=== PATIENT | male | born 1940 | race Caucasian/White ===

== ENCOUNTER → 2017-02-07 | Outpatient (CLI) | payer BC ==
--- NOTE | 2017-02-08 23:41 | PULMONARY FUNCTION TEST ---
Spirometry is normal. Repeat study done following bronchodilators showed no significant change in function. Flow volume loop on expiration was normal. It appeared the patient did not optimally perform the inspiratory portion of the flow volume loop.
== END | disposition home or self-care (01) ==
LOC: C.RC 11:18
PROVIDERS: ATTEND Internal Medicine
DX: R05 Cough (principal)

== ENCOUNTER 2019-02-22 10:35 | Inpatient (IN) ==
--- NOTE | 2019-01-04 13:57 | PAT Medication Instructions ---
Medication Instructions Date of Service January 04, 2019 Home Medications Medication Instructions Recorded trazodone 50 mg tablet 50 mg PO QPM #30 tab 01/02/19 alfuzosin [Uroxatral] 10 mg PO UD PRN cholecalciferol (vitamin D3) [Vitamin D3] 2,000 unit PO DAILY losartan [Cozaar] 100 mg PO QAM aspirin 325 mg tablet 325 mg PO DAILY atorvastatin 40 mg tablet 40 mg PO QPM coenzyme Q10 100 mg capsule 200 mg PO DAILY hydrochlorothiazide 12.5 mg tablet 12.5 mg PO QAM magnesium citrate 100 mg tablet 100 mg PO DAILY vitamin B complex capsule 1 cap PO DAILY trazodone 50 mg tablet 50 mg PO QPM omeprazole magnesium [Prilosec OTC] 20 mg PO UD PRN vitamin K2 100 mcg PO DAILY ASK your prescriber and surgeon aspirin 325 mg tablet 325 mg PO DAILY STOP taking 2 weeks before surgery (or as soon as possible if surgery is within 2 weeks) coenzyme Q10 100 mg capsule 200 mg PO DAILY vitamin K2 100 mcg PO DAILY DO NOT take the morning of surgery cholecalciferol (vitamin D3) [Vitamin D3] 2,000 unit PO DAILY losartan [Cozaar] 100 mg PO QAM hydrochlorothiazide 12.5 mg tablet 12.5 mg PO QAM magnesium citrate 100 mg tablet 100 mg PO DAILY vitamin B complex capsule 1 cap PO DAILY Take morning of surgery With a small sip of water, OTHERWISE NOTHING TO EAT OR DRINK AFTER MIDNIGHT: alfuzosin [Uroxatral] 10 mg PO UD PRN (if needed) omeprazole magnesium [Prilosec OTC] 20 mg PO UD PRN (if needed) Take evening before surgery alfuzosin [Uroxatral] 10 mg PO UD PRN (if needed) atorvastatin 40 mg tablet 40 mg PO QPM trazodone 50 mg tablet 50 mg PO QPM omeprazole magnesium [Prilosec OTC] 20 mg PO UD PRN (if needed) Other Notes If you have any questions please call us at [phone] or [phone] or [phone] or [phone]
--- NOTE | 2019-01-07 10:06 | Anesthesiology Consultation ---
Date of Service January 07, 2019 Assessment & Plan (1) Encounter for pre-operative examination: Chart Review Chart Review: Pending: Refer to Additional Notes / Consult section and Patient seen in Pre Admission Testing Labs pending. Consults Requested cardiac Patient has a follow up appointment with his Cardiology at [facility] on February 14. 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 Patient stated s iron worker has already spoken to cardiac surgery and they do not feel surgery is indicated at this time. Will wait until this appointment is completed and would request the note to be reviewed prior to stating patient is an acceptable risk for knee surgery. Teaching & Discussion I spoke at great length to the patient and stated he would be offered an adductor canal block with a likely general anesthetic although would not definitively r/o SAB (will leave to the discretion of the anesthesia provider DOS). Also spoke to him about the possibility of an arterial line for closer BP monitoring. Patient understood and had all questions answered. He is very much interested in having knee surgery as he states he is active, plays tennis and has never had any symptoms stemming from his dilated aorta. History Surgery Operation Date: 02/22/19 07:00 Proposed Procedures p Right Knee Hemiarthroplasty - Hank Murillo, Height/Weight Height: 5 ft 8 in Weight: 87 kg Allergies Allergy/AdvReac Type Severity Reaction Status Date / Time celecoxib [From Celebrex] Allergy Unknown Rash Verified 01/03/19 09:34 erythromycin base Allergy Unknown Rash Verified 01/03/19 09:34 nickel Allergy Unknown "INFLAMMATI Verified 01/03/19 09:34 ON" morphine AdvReac Unknown N/V, Verified 01/03/19 09:34 VERTIGO AND HEADACHE Medications Home Medications Medication Instructions Recorded Confirmed Last Taken alfuzosin [Uroxatral] 10 mg PO UD PRN 01/10/18 01/03/19 Unknown cholecalciferol (vitamin D3) 2,000 unit PO DAILY 01/10/18 01/03/19 Unknown [Vitamin D3] losartan [Cozaar] 100 mg PO QAM 01/10/18 01/03/19 Unknown aspirin 325 mg tablet 325 mg PO DAILY tab 11/06/18 01/03/19 Unknown atorvastatin 40 mg tablet 40 mg PO QPM tab 11/06/18 01/03/19 Unknown coenzyme Q10 100 mg capsule 200 mg PO DAILY cap 11/06/18 01/03/19 Unknown hydrochlorothiazide 12.5 mg tablet 12.5 mg PO QAM #30 tab 11/06/18 01/03/19 Unknown magnesium citrate 100 mg tablet 100 mg PO DAILY tab 11/06/18 01/03/19 Unknown vitamin B complex capsule 1 cap PO DAILY 11/06/18 01/03/19 Unknown trazodone 50 mg tablet 50 mg PO QPM #30 tab 01/02/19 01/03/19 Unknown omeprazole magnesium [Prilosec OTC] 20 mg PO UD PRN 01/03/19 01/03/19 Unknown vitamin K2 100 mcg PO DAILY 01/03/19 01/03/19 Unknown Past Medical History Medical History Aneurysm of ascending aorta (Acute) AORTA ROOT AND DESCENDING AORTA, SIZE CHECK Q 6 MON/LAST CHECK, WEEKS AGO - 4.[address] Sesar Chow of [facility] cardiology. Most recently saw patient November 08, 2018. Per his note: CTA of the aorta to re-evaluate aortic enlargement (which was done 12/27/2018). Given FH of dissection (patient's father had fatal dissection in his mid 60's), to jessie monten[place]ro these results with cardiac surgery. Home BP monitoring." BPH (benign prostatic hyperplasia) (Acute) CAD (coronary artery disease) (Acute) Hyperlipidemia (Acute) Hypertension (Acute) Anxiety Bradycardia BASELINE RESTING HR HIGH 40'S, LOW 50'S - NO SYMPTOMS WITH - PT ACTIVE LIFESTYLE Heartburn OCCASSIONAL Insomnia Osteoarthritis Sleep apnea CPAP Exercise / Class Metabolic Activity 1 > 8 Run/Swim/Ski/Tennis Past Family History Family History Mother Hypertension Stroke Father Aortic aneurysm Cardiac disorder Past Surgical History Surgical History History of colonoscopy History of knee surgery LEFT KNEE HEMIARTHROPLASTY. 10 years ago. SAB. No anesthesia issues. History of right knee surgery Social History Smoking Status: Never smoker Do You Dip or Chew Tobacco: No Hx Alcohol Use: Yes Alcohol type: wine and hard liquor alcohol intake frequency: a few times a week Hx Substance Use: No substance use type: does not use Physical Exam Vital Signs Last Vital Signs Temp 36.6 C 01/07/19 09:32 Pulse 53 L 01/07/19 09:32 Resp 18 01/07/19 09:32 BP 120/58 L 01/07/19 09:32 Pulse Ox 100 01/07/19 09:32 ENMT Mouth: + dental bridge (permanent ) and + dental restorations; no TMJ abnormality Thyromental Distance: > or= 3.5 Finger Breadths Mallampati Class: III Neck normal visual inspection and + thick neck Respiratory normal respiratory effort Auscultation: lungs clear to auscultation bilaterally Cardiovascular Rate/Rhythm: regular rate and regular rhythm Heart Sounds: + murmur Musculoskeletal Spine: normal cervical ROM and no pain with cervical ROM Neurologic moves all extremities Motor/Sensory: no sensory deficit Psychiatric Orientation: alert and oriented x 3 Testing Electrocardiogram Date: 11/08/18 Findings: + NSR @ (61) NSR. LAD. Abnormal ECG. Echocardiogram Date: 10/12/18 Mild LVH. Normal global left ventricular systolic function. Normal regional wall motion. EF 60%. No . Mild-moderate aortic regurg. 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 Ascending aorta is dilated (4.4cm). Other Testing CT chest with IV contrast 12/27/2018. 1. No acute extracardiac findings. 2. Dilated aortic root. 3. Mild dilation of the main pulmonary artery, which can be seen with PA HTN. The aortic root is moderate-severely dilated at the sinus of Valsalva measuring on average 52mm. These dimensions are essentially identical compared to the study in 02/2018. The ascending aorta is mildly dilated and measures 42mm in diameter at the level of the pulmonary artery and also just proximal to the left subclavian artery.
[2019-01-07 10:54] LABS: Basophils # (auto) 0.02 K/uL (0-0.2); Basophils % (auto) 0.5 %; Eosinophils # (auto) 0.13 K/uL (0-0.5); Eosinophils % (auto) 3.2 %; Hemoglobin 14.3 g/dL (14.0-18.0); Lymphocytes # (auto) 1.19 K/uL (1.2-3.4); Lymphocytes % (auto) 29.6 %; Mean Corpuscular Volume 90.9 fL (80-100); Mean Platelet Volume 9.4 fL (7.4-10.4); Monocytes # (auto) 0.33 K/uL (0.11-0.59); Monocytes % (auto) 8.2 %; Neutrophils # (auto) 2.35 K/uL (1.4-6.5); Neutrophils % (auto) 58.5 %; Platelet Count 138 K/uL (130-400); RDW Coefficient of Variation 13.3 % (11.5-14.5); RDW Standard Deviation 43.7 fL (36.4-46.3); Red Blood Count 4.62 M/uL (4.7-6.1); White Blood Count 4.02 K/uL (4.8-10.8)
[2019-01-07 10:58] LABS: Appearance Urine Clear (Clear); Bilirubin Urine Negative (Negative); Blood Urine Negative (Negative); Color Urine Yellow; Glucose Urine UA Negative (Negative); Ketones Urine Negative (Negative); Leukocyte Esterase Urine Negative (Negative); Nitrite Urine Negative (Negative); Protein Urine Negative (Negative); Specific Gravity Urine 1.012 (1.000-1.030); Urobilinogen Urine Negative (Negative); pH Urine 6.5 (4.5-7.5)
[2019-01-07 11:03] LABS: BUN Creatinine Ratio 19.5 (10-20); Blood Urea Nitrogen 18 mg/dl (7-18); C Reactive Protein < 0.29 mg/dl (0-0.29); Calcium 8.7 mg/dl (8.5-10.1); Carbon Dioxide 31 mmol/L (21-32); Chloride 106 mmol/L (98-107); Creatinine Clr Calc Pharmacy 73.3 ml/min; Est GFR (African American) 93.3; Est GFR (Non-African American) 80.5; Glucose 92 mg/dl (70-99); Potassium 3.6 mmol/L (3.5-5.1); Sodium 141 mmol/L (136-145)
[2019-01-07 13:40] LABS: Partial Thromboplastin Time 26.5 Seconds (21.0-31.0); Prothrombin Time 10.3 Seconds (9.0-12.0)
--- NOTE | 2019-02-21 14:37 | History & Physical Report ---
Date of Service February 21, 2019 Assessment & Plan (1) Osteoarthritis of right knee: We will proceed with a right unicompartmental knee arthroplasty. Postoperatively he was started on aspirin for DVT prophylaxis and kept overnight in the hospital for postop medical management. He plans to use energy physical therapy upon discharge. Present on Admission?: Yes History of Present Illness Chief Complaint: Primary osteoarthritis of the right knee Primary Care Provider: Binh Vincent MD Elio is a pleasant 78-year-old male who underwent a left partial knee replacement 10 years ago in [place]. Unfortunately he was found to have a nickel allergy postoperatively. He is been dealing with persistent effusions of his left knee. He has now developed osteoarthritis of his right knee. X-rays and clinical examination have been diagnostic for primary osteoarthritis involving the medial compartment of the knee. After failing conservative treatment, he has elected to proceed with a right unicompartmental knee arthroplasty. Allergies Allergy/AdvReac Type Severity Reaction Status Date / Time celecoxib [From Celebrex] Allergy Unknown Rash Verified 01/03/19 09:34 erythromycin base Allergy Unknown Rash Verified 01/03/19 09:34 nickel Allergy Unknown "INFLAMMATI Verified 01/03/19 09:34 ON" morphine AdvReac Unknown N/V, Verified 01/03/19 09:34 VERTIGO AND HEADACHE Home Medications Home Medications Medication Instructions Recorded Confirmed Type alfuzosin [Uroxatral] 10 mg PO UD PRN 01/10/18 01/03/19 History cholecalciferol (vitamin D3) 2,000 unit PO DAILY 01/10/18 01/03/19 History [Vitamin D3] losartan [Cozaar] 100 mg PO QAM 01/10/18 01/03/19 History aspirin 325 mg tablet 325 mg PO DAILY tab 11/06/18 01/03/19 History atorvastatin 40 mg tablet 40 mg PO QPM tab 11/06/18 01/03/19 History coenzyme Q10 100 mg capsule 200 mg PO DAILY cap 11/06/18 01/03/19 History hydrochlorothiazide 12.5 mg tablet 12.5 mg PO QAM #30 tab 11/06/18 01/03/19 History magnesium citrate 100 mg tablet 100 mg PO DAILY tab 11/06/18 01/03/19 History vitamin B complex capsule 1 cap PO DAILY 11/06/18 01/03/19 History trazodone 50 mg tablet 50 mg PO QPM #30 tab 01/02/19 01/03/19 Rx omeprazole magnesium [Prilosec OTC] 20 mg PO UD PRN 01/03/19 01/03/19 History vitamin K2 100 mcg PO DAILY 01/03/19 01/03/19 History Past Med/Surg History Medical History Aneurysm of ascending aorta (Acute) AORTA ROOT AND DESCENDING AORTA, SIZE CHECK Q 6 MON/LAST CHECK, WEEKS AGO - 4 .[address] Sesar Chow of [facility] cardiology. Most recently saw patient November 08, 2018. Per his note: CTA of the aorta to re-evaluate aortic enlargement (which was done 12/27/2018). Given FH of dissection (patient's father had fatal dissection in his mid 60's), to discuss these results with cardiac surgery. Home BP monitoring." BPH (benign prostatic hyperplasia) (Acute) CAD (coronary artery disease) (Acute) Hyperlipidemia (Acute) Hypertension (Acute) Anxiety Bradycardia BASELINE RESTING HR HIGH 40'S, LOW 50'S - NO SYMPTOMS WITH - PT ACTIVE LIFESTYLE Heartburn OCCASSIONAL Insomnia Osteoarthritis Sleep apnea CPAP Surgical History History of colonoscopy History of knee surgery LEFT KNEE HEMIARTHROPLASTY. 10 years ago. SAB. No anesthesia issues. History of right knee surgery Family History Mother Hypertension Stroke Father Aortic aneurysm Cardiac disorder Social History Preferred Language: Upper Sorbian Communication Ability: Effective Aemt Required: No Beliefs That Will Affect Care: None Current Living Situation: Spouse Other Information That Helps Us Care for You: No Feels Safe at Home: Yes Smoking Status: Never smoker Do You Dip or Chew Tobacco: No ; Hx Alcohol Use: Yes Alcohol type: wine and hard liquor Hx Substance Use: No caffeine: Yes Seatbelt Use: always Review of Systems All systems reviewed & are unremarkable except as noted in HPI & below Physical Exam Constitutional: WD/WN, vitals as above Eyes: PERRL, conjunctivae normal, anicteric sclerae ENMT: external ear and nose normal, oropharynx normal Neck: trachea midline, no thyromegaly Respiratory: normal respiratory effort Cardiovascular: RRR, no murmur, no edema Gastrointestinal (Abdomen): normal bowel sounds, soft, nontender, no hepatosplenomegaly Musculoskeletal: On physical examination of the right knee there is a trace effusion. There is near full range of motion and no evidence of instability. There is significant tenderness palpation along the medial and lateral joint lines and over the distal femoral condyles. Psychiatric: A+Ox3, euthymic affect Results & Data Diagnostic Findings Radiographs of the right knee demonstrate advanced osteoarthritis with joint space narrowing osteophyte formation and [id number] articulation.
[~2019-02-22 10:35] MED LIST: ACETAMINOPHEN 500 MG TAB PO SCH; BUPIVACAINE 0.25% 30 ML VIAL ONE; BUPIVACAINE 0.5 % 5 MG/1 ML PF 10ML VIAL ONE; CEFAZOLIN 2000MG 2,000 MG/15 ML SYR IV SCH; FAMOTIDINE 20 MG TAB PO SCH; GABAPENTIN 300 MG CAP PO SCH; LR 500ML BOLUS, THEN 15ML/HR IV SCH; LR 60ML/HR IV SCH; ROPIVACAINE 0.5% HCL/PF 150 MG, BUPIVACAINE 0.5% MPF 30 ML, EPINEPHrine 30MG/30ML (OR U... INSTIL SCH; TRANEXAMIC ACID 1,000 MG **IV Intra-op IV SCH; TRANEXAMIC ACID 1,000 MG **IV Pre-op IV SCH
[2019-02-22] MEDS ORDERED: fentaNYL citrate 100 MCG/2 ML VIAL IV PRN (11:06)
[2019-02-22] MEDS ORDERED: ONDANSETRON INJ 2 MG/ML 2 ML VIAL IV PRN ×2 (11:06→16:12)
[2019-02-22] MEDS ORDERED: ATROPINE SULFATE 0.1 MG/ML 10ML SYR IV PRN (11:06)
[2019-02-22] MEDS ORDERED: ePHEDrine sulfate 50 MG/ML AMP IV PRN (11:06)
[2019-02-22] MEDS ORDERED: MIDAZOLAM HCL 1 MG/ML 2ML VIAL ONE (12:23)
[2019-02-22] MEDS ORDERED: fentaNYL citrate 100 MCG/2 ML VIAL ONE (12:24)
[2019-02-22] MEDS ORDERED: KETAMINE HCL INJ 50 MG/ML 10 ML VIAL ONE (12:39)
[2019-02-22] MEDS ORDERED: ORTHO JOINT ANESTHETIC ONE (12:39)
[2019-02-22] MEDS ORDERED: PROPOFOL IV EMULSION 10 MG/ML 20 ML VIAL IV ONE (12:40)
[2019-02-22] MEDS ORDERED: BACITRACIN INJ 50,000 UNIT VIAL ONE (12:40)
[2019-02-22] MEDS ORDERED: LIDOCAINE HCL 2% 2 ML VIAL/AMP(20MG/ML) INFIL ONE (12:40)
--- NOTE | 2019-02-22 12:58 | History & Physical Bridge Note ---
Date of Service February 22, 2019 History & Physical Bridge Note I have examined the patient, reviewed the History & Physical and in the interval since the performance of the History & Physical I have noted the following changes of clinical significance: no changes noted
--- NOTE | 2019-02-22 14:44 | Operative Report ---
Post Operative Report Pre & Post Diagnosis Operation Date: 02/22/19 12:50 Pre-Op Diagnosis: Right Knee Degenerative Joint Disease Post-Op Diagnosis: Right Knee Degenerative Joint Disease I identified the patient and participated in the time-out.: Yes Procedure Operation Date: 02/22/19 12:50 Actual Procedures p Right Knee unicompartmental arthroplasty (Right) - Hank Murillo DO Surgeon Hank Murillo DO Welding Inspector Hank Márquez PAC Estimated Blood Loss 20 Findings Consistent with Post-Op Diagnosis Specimens Right femoral and tibial bone Complications none Disposition Disposition: Recovery Room Indications Elio is a pleasant 79-year-old male who is been dealing with chronic increasing right knee pain. X-rays and clinical examination were diagnostic for primary osteoarthritis of the right knee. After failing conservative treatment, he elected to proceed with a right unicompartmental knee arthroplasty. Description of Procedure Implants used I used a [employer] journey femoral component size 6 with a Libby Zuk tibial component size 6 and a 6 x 8 mm polyethylene insert. Components were cemented with Palacos G cement. On February 22, 2019 Elio arrived at [facility] for the above procedure. He was seen in the preoperative holding area and the operative extremity was identified and signed. He was given a preoperative antibiotic and a spinal anesthetic. He was taken back to the operating room and laid on the table in the supine position. He was put under basic sedation. The right knee was then prepped and draped in sterile fashion. A timeout was done. The patient and the operative extremity was properly identified. A midline incision was made over the patella. Dissection was taken down to the extensor mechanism. A sub-vastus approach was used. A small portion of the fat pad was excised and the medial retinaculum was released. The meniscus was removed. The ACL was intact. The knee was then flexed. A patient specific tibial guide was then snapped onto the anterior aspect of the tibia. The tibia cuts were then made. A patient specific femoral guide was then snapped onto the distal femur. The distal femoral cut was then made. A posterior and chamfer cutting guide was then placed on the distal femur. The chamfer and posterior cuts were then made. The peg holes were then drilled. Attention was turned back to the tibia. The tibia measured to be a size 6. A trial was impacted in the place and 2 peg holes were drilled. A femoral trial was then placed followed by 8 mm poly. The knee was brought through full range of motion and felt to be stable. Trial components were then removed. Surrounding soft tissues were then injected with an orthopedic pain control cocktail. The final size 6 femoral component and size 6 tibial component were then cemented in place. An 8 mm polyethylene insert was then snapped into place. The knee was brought through full range of motion felt to be stable. The extensor mechanism was then closed with #1 Vicryl suture area skin was closed with 2-0 Vicryl, 3-0 V-Loc suture and tomi. He was then placed in a soft dressing. He was then transferred to a hospital bed and taken to the postanesthesia care unit in stable condition. He tolerated the procedure well. I attest to the content of the Intraoperative Record and any orders documented therein. Any exceptions are noted below.
--- NOTE | 2019-02-22 15:23 | Anesthesiology Progress Note ---
Date of Service February 22, 2019 Anesthesia Post Procedure Vital Signs Vital Signs: Temp Pulse Pulse Resp BP BP Pulse Ox 02/22/19 15:10 50 L 13 122/64 100 02/22/19 15:04 97.5 F L 55 L 15 130/64 100 02/22/19 11:12 97.9 F 50 L 22 135/71 97 Pain Intensity Right Knee: Pain Intensity: 0 Transfer of Care Handoff Completed per policy Notes Mental Status: alert / awake / arousable and participated in evaluation Patient Amnestic to Procedure: Yes Nausea / Vomiting: adequately controlled Pain: adequately controlled Airway Patency, RR, SpO2: stable & adequate BP & HR: stable & adequate Hydration State: stable & adequate Neuraxial Anesthesia: was administered and sensory block is resolving Anesthetic Complications: no major complications apparent and Pt Satisfied with anesthetic care
--- NOTE | 2019-02-22 15:31 | XRay Report ---
XR knee RT 1 or 2V routine CLINICAL HISTORY: Surgical Post Op COMPARISON: None. DISCUSSION: There are postsurgical changes of a right knee medial joint compartment hemiarthroplasty. There are overlying skin tomi. There is air within the soft tissues consistent with recent surger y. No complicating features are visualized. Degenerative changes are present within the patellofemora l joint. There are small lateral joint compartment spurs. IMPRESSION: Postsurgical changes of a medial joint compartment hemiarthroplasty. Electronically signed by: Omar Ortiz M.D. 02/22/2019 3:29 PM
[2019-02-22] MEDS ORDERED: BISACODYL 10 MG SUPP PR PRN (16:12)
[2019-02-22] MEDS ORDERED: NALOXONE HCL 0.4 MG/1 ML VIAL/CARP IV PRN (16:12)
[2019-02-22] MEDS ORDERED: METOCLOPRAMIDE HCL INJ 5 MG/ML 2 ML VIAL IV PRN (16:12)
[2019-02-22] MEDS ORDERED: HYDROmorphone INJ 0.5 MG/0.5 ML SYR IV PRN (16:12)
[2019-02-22] MEDS ORDERED: SODIUM CHLORIDE 0.9% 1000ML 1,000 ML IV SCH (16:12)
[2019-02-22] MEDS ORDERED: MAGNESIUM HYDROXIDE SUSP 30 ML UDC PO PRN (16:12)
[2019-02-22] MEDS ORDERED: ALFUZOSIN HCL 10 MG TAB PO PRN (16:12)
[2019-02-22] MEDS ORDERED: PANTOprazole 40 MG TAB PO PRN (16:12)
[2019-02-22] MEDS: CELEBREX: ALLERGY NOTED TO ORDERED MEDICATION SCH ×2 (17:27→17:28)
[2019-02-22] MEDS ORDERED: SENNA 8.6 MG TAB PO SCH (21:00)
[2019-02-22] MEDS ORDERED: ATORVASTATIN 40 MG TAB PO SCH (21:00)
[2019-02-22] MEDS: ASPIRIN 81 MG ECTAB PO SCH (21:50)
[2019-02-22] MEDS: ACETAMINOPHEN 500 MG TAB PO SCH (21:50)
[2019-02-22] MEDS: DOCUSATE SODIUM 100 MG CAP PO SCH (21:50)
[2019-02-22] MEDS: CEFAZOLIN 2000MG 2,000 MG/15 ML SYR IV SCH (21:51)
[2019-02-23] MEDS: OXYCODONE HCL IR 5 MG TAB (IMMEDIATE RELEASE) PO PRN ×3 (02:23→12:51)
[2019-02-23] MEDS: ACETAMINOPHEN 500 MG TAB PO SCH (05:29)
[2019-02-23] MEDS: CEFAZOLIN 2000MG 2,000 MG/15 ML SYR IV SCH (05:29)
[2019-02-23 05:30] LABS: Hematocrit (blood only) 38.6 % (42-52); Hemoglobin 13.2 g/dL (14.0-18.0); Mean Corpuscular Hemoglobin 30.6 pg (25-34); Mean Corpuscular Hgb Conc 34.2 g/dL (32-36); Mean Corpuscular Volume 89.6 fL (80-100); Mean Platelet Volume 9.1 fL (7.4-10.4); Platelet Count 127 K/uL (130-400); RDW Coefficient of Variation 12.8 % (11.5-14.5); RDW Standard Deviation 42.2 fL (36.4-46.3); Red Blood Count 4.31 M/uL (4.7-6.1)
[2019-02-23 06:05] LABS: BUN Creatinine Ratio 17.1 (10-20); Calcium 8.4 mg/dl (8.5-10.1); Creatinine Clr Calc Pharmacy 63.6 ml/min; Est GFR (Non-African American) 68.1
[2019-02-23] MEDS: DOCUSATE SODIUM 100 MG CAP PO SCH (08:22)
[2019-02-23] MEDS: ASPIRIN 81 MG ECTAB PO SCH (08:22)
--- NOTE | 2019-02-23 08:49 | Orthopedic Progress Note ---
Date of Service February 23, 2019 Assessment & Plan (1) Osteoarthritis of right knee: Overall is doing very well. Is not having much pain in the right knee. He is happy with his progress. He will be seen by physical therapy this morning for ambulation and range of motion exercises. He is on aspirin for DVT prophylaxis. He can be discharged home later this morning. He will get energy physical therapy. He will follow-up with orthopedics in 2 weeks. Present on Admission?: Yes Subjective Elio was seen and examined at bedside this morning. Overall is doing very well. He will little drainage through his dressing but that has been reinforced. He has little to no pain in his right knee. He has no complaints. Physical Exam Musculoskeletal: On physical examination of the right knee, the dressing has been reinforced. He is sitting with his knee flexed at 80 degrees. He has active dorsiflexion and plantarflexion of his right ankle. Sensations intact throughout. Results & Data Vital Signs (Past 12 Hours) Vital Signs Temp Pulse Pulse Resp BP Pulse Ox 02/23/19 07:49 36.8 C 46 L 20 148/71 H 99 02/23/19 02:28 36.4 C L 52 L 16 138/56 L 98 02/22/19 23:37 36.7 C 54 L 16 137/64 98 Laboratory Results H & H 01/07/19 02/23/19 Range/Units 10:09 05:16 Hgb 14.3 13.2 L (14.0-18.0) g/dL Hct 42.0 38.6 L (42-52) % Coagulation 01/07/19 Range/Units 10:09 INR 1.0 (0.9-1.1) Diagnostic Findings Postoperative x-rays of the right knee show the prosthesis to be in anatomic alignment without any evidence of fracture, dislocation, or loosening. PG Care Time/CCT Total # of Minutes Spent Total Time Spent with Patient: Total time spent is greater than 50% in coordination of care (as documented) at patient's floor/unit and/or counseling patient:
--- NOTE | 2019-02-23 08:55 | Discharge Summary ---
Date of Service February 23, 2019 Admission HPI Per Admitting Provider Elio is a pleasant 78-year-old male who underwent a left partial knee replacement 10 years ago in [place]. Unfortunately he was found to have a nickel allergy postoperatively. He is been dealing with persistent effusions of his left knee. He has now developed osteoarthritis of his right knee. X-rays and clinical examination have been diagnostic for primary osteoarthritis involving the medial compartment of the knee. After failing conservative treatment, he has elected to proceed with a right unicompartmental knee arthroplasty. Principal Diagnosis Right unicompartmental knee arthroplasty Discharge Data Allergies Allergy/AdvReac Type Severity Reaction Status Date / Time nickel Allergy Severe "INFLAMMATI Verified 02/22/19 11:08 ON" celecoxib [From Celebrex] Allergy Mild Rash Verified 02/22/19 11:08 erythromycin base Allergy Mild Rash Verified 02/22/19 11:08 morphine AdvReac Severe N/V, Verified 02/22/19 11:08 VERTIGO AND HEADACHE Consultations 02/22/19 16:12 Consult Case Management - Discharge Planning Routine Procedures Performed Operation Date: 02/22/19 12:50 Actual Procedures p Right Knee Hemiarthroplasty(Right) - Hank Murillo DO Ordered Studies 02/22/19 05:00 US - OR guided needle placemen Routine Hospital Course (1) Osteoarthritis of right knee: On February 22, 2019 Elio arrived at [facility] and underw ent a right unicompartmental knee arthroplasty without complication. He had a spinal anesthetic and a right adductor nerve block. Postoperatively he was started on aspirin for DVT prophylaxis and discharged to general orthopedic floors. His hospital course was uneventful. On postop day #1 his H&H was stable and his pain was well controlled. He was able to ambulate well with physical therapy. He was then discharged home with [facility]. He will follow-up with orthopedics in 2 weeks. Total Time Total Time Spent Total Time Spent (In Minutes): 20 Discharge Plan Discharge Items Patient Disposition: Home - Home Health Services Reason For Visit: Right Knee Degenerative Joint Disease Discharge Diagnosis: Right unicompartmental knee arthroplasty Activity: As commented below Non-emergency contact: Surgeon Call non-emergency contact if: your wound has increased redness and your wound has increased drainage Follow-up/Referrals: Binh Vincent MD [Primary Care Provider] - Diet: Regular Addtl Attending Provider Instructions: Activity and Therapy Recommendations: * If you are using [facility] then therapy will be provided at your home until they feel you have accomplished all of your goals. * If you are using [facility] then Physical Therapy will be provided until they feel you are ready to start Outpatient Physical Therapy. * If you are not using home therapy then Outpatient Physical Therapy should start about 3-5 days from your day of surgery. Therapy will last about 6-10 weeks * It is important not to put a pillow under your knee when you are relaxing or sleeping. It is just as important to make sure you are getting your knee perfectly straight as it is to regain your knee bend. * You were shown a series of exercises in the hospital. Do these exercises three times each day including the exercises you were shown in physical therapy. * Get up and walk several times each day. For the first four weeks, try not to stand or walk for more than one hour at a time. If you do stand or walk for more than one hour, you will not hurt anything, but your leg will likely swell. * As you feel comfortable, you may change from the walker or crutches to a cane and then to independent walking. Medications: * Narcotic You will likely be sent home from the hospital with a prescription for the narcotic pain medication that worked best throughout your stay. * Aspirin Most patients will be required to take Aspirin 81mg twice a day for 6 weeks after surgery. This is obtained [id number] and a prescription is not necessary. * Other medications may be prescribed for specific circumstances. If you have any questions, please call the office at . * Resume previous home medications unless otherwise instructed TEDs/Elastic Stockings: The white elastic stockings help limit swelling and prevent blood clots from forming in your legs.~ The more you wear them, the more they work. Wear them for six weeks. Dressing Care: If the incision is not draining then you may leave the tomi open to air. If there is a little bit of drainage or if the tomi are getting stuck on your clothing then cover the incision with a dry dressing. The tomi will be removed at your 2 week follow-up appointment. Showering: You may shower 5 days from the day of surgery. Let the soapy shower water run over the tomi and pat them dry. Do not scrub or soak the incision. Things To Watch For: * Drainage from the incision site that occurs more than one week after your surgery. * Increased redness at the incision site. * Fever above 102 degrees Fahrenheit. * Unusual chest pain or shortness of breath. * Call [facility] at with any of the above problems Follow-Up Visit: Follow-up with Dr. Murillo 2-3 weeks after your day of surgery. An appointment was probably scheduled when you signed-up for surgery in the office. If you have any questions call Office Instructions: More detailed instructions as well as Frequently Asked Questions were provided in a folder by our office when you signed-up for surgery. Please review these instructions when you get home. If you have any further questions or concerns, please feel free to call the office at [phone] Pending Studies at Discharge: No Stand-Alone Forms: My [facility] [employer], Smoking Cessation Medications and DC Order Prescriptions: New oxycodone 5 mg Tablet 5 mg PO Q4H PRN (Reason: pain) Qty: 30 RF: 0 Continued trazodone 50 mg tablet 50 mg PO QPM Qty: 30 RF: 3 vitamin B complex capsule 1 cap PO DAILY RF: 0 aspirin 325 mg tablet 325 mg PO DAILY RF: 0 hydrochlorothiazide 12.5 mg tablet 12.5 mg PO QAM Qty: 30 RF: 0 magnesium citrate 100 mg tablet 100 mg PO DAILY RF: 0 Prilosec OTC 20 mg Tablet,Delayed Release (Dr/Ec) 20 mg PO UD PRN (Reason: Heartburn) RF: 0 vitamin K2 40 mcg Tablet 100 mcg PO DAILY RF: 0 losartan [Cozaar] 100 mg tablet 100 mg PO QAM RF: 0 alfuzosin [Uroxatral] 10 mg tablet extended release 24 hr 10 mg PO UD PRN (Reason: ENLARGED PROSTATE) RF: 0 cholecalciferol (vitamin D3) [Vitamin D3] 2,000 unit Tablet 2,000 unit PO DAILY RF: 0 atorvastatin [Lipitor] 40 mg tablet 40 mg PO QPM RF: 0 coenzyme Q10 [Co Q-10] 100 mg capsule 200 mg PO DAILY RF: 0 Discharge Orders: Discharge Order (Routine); Ordered 02/23/19 Ordered By: Hank Murillo Admission Data Admit Date/Time: 02/22/19 15:05 Attending Provider: Hank Murillo Admit Provider: Hnak Murillo Primary Care Provider: Binh Vincent
[2019-02-23] MEDS ORDERED: hydroCHLOROthiazide 25 MG TAB PO SCH (09:00)
[2019-02-23] MEDS ORDERED: NON-FORMULARY MEDICATION (Magnesium Citrate 100 MG) PO SCH (09:00)
[2019-02-23] MEDS ORDERED: LOSARTAN POTASSIUM 50 MG TAB PO SCH (09:00)
[2019-02-23] MEDS ORDERED: MULTIVITAMIN TAB PO SCH (09:00)
== END 2019-02-23 13:07 | disposition home health service (06) | DRG 470 ==
LOC: ASU 10:35 → 3E 15:05

== ENCOUNTER 2021-06-14 10:34 | Observation (INO) ==
--- NOTE | 2021-06-09 16:09 | Anesthesiology Consultation ---
Date of Service June 09, 2021 Assessment & Plan (1) Encounter for pre-operative examination: - check CBC with diff, BMP and coags am DOS. - GI office visit 06/09/2021 [place]: "...unclear if this is true GERD vs. allergic etiology of his cough/throat clearing or other cause. EGD with LANE off PPI and H2 paul to further evaluate...EGD with LANE..." - ENT office visit 05/18/2021 [place]: "...seen 03/01/[address] Roblero with several year history of frequent and persistent throat clearing and dry cough. No throat pain, dysphagia, odynophagia, otalgia, or unexplained weight loss. He reported h/o seasonal allergic rhinitis with PRN use of Zyrtec, Nasacort, saline which he does not feel is associated with symptoms. No sinus pain/pressure or purulent mucous. (+) sensation of post nasal drip. No dyspnea, wheeze or pain with inspiration. Laryngoscopy 03/01/2021 demonstrated thick secretions scattered throughout the supraglottis. prescribed omeprazole 40mgm + famotidine 20 given h/o prior reflux/esophagitis and findings on laryngoscopy. Today, patient reports he has been taking the medication as directed however has not noticed any difference in symptoms. Frequent throat clearing has persisted. No dysphonia or pain...longstanding history of frequent throat clearing. He is worried this may impact his recovery from aortic repair. No improvement with reflux regimen - he may decrease PPI to 20mg. We discussed options to investigate URT with sinus ct &r allergy testing vs further GI inquiry. He would like to first pursue additional GI investigation. Referral placed..." Per anesthesia consultation 04/01/2021 - Case discussed with Dr. Lopez.He isNOTacceptable candidate for outpatient joint program. Pt made aware at PAT visit, surgeon's office also made aware. -cardiology office visit 03/25/2021 Dr. Claudine Palma: "...aortic root enlargement, for which it has become a personal decision about when to pursue e lective repair/replacement. he has visited with surgeons at both [facility] and [facility], who both thought that surgery would be reasonable when he is ready. He is currently thinking about November for surgery after a summer trip to [place]. He had a repeat CTA a few days ago. This was ready and compared to prior by Dr. David Carmichael. The aortic measurements were identical to 2 years ago. The cusp to cusp measurement of the aortic root was 5.2 cm, and commissure to cusp was 4.8 cm. He had mild to moderate coronary atherosclerotic disease without stenosis. Since our last visit, he has felt great...Follows BPs very closely at home. There they have been very well controlled, SBP 120. Is due to to [sic] get a revision total knee replacement on the left side in a few days. He requested cardiac clearance for this...He can proceed to orthopedic surgery with no further testing. HR excursions should be minimized during surgery..." -PCP office visit 03/31/2021 Dr. VincentMNPG: "...s/p left unicompartmental knee arthroplasty. Now planning total left knee arthroplasty. I reviewed last cardiology note from [facility]. Considered low risk for surgery. No need for additional cardiopulmonary testing. Aortic root dilatation. 5 cm. To follow-up CTA with [facility] Cardiology in the winter to consider surgical correction. presumed nonocclusive coronary artery disease. Aortic atherosclerosis. Chest CTA at revealed nonocclusive disease coronary arteries 2018. Continue risk reduction therapy. Medications reviewed. 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 Ultrasound . plan to repeat in 2 years. -anesthesia record right TKA 02/22/2019[facility]:SAB at L4-L5 + PNB. No issues per anesthesia progress note. -anesthesia consult Dr. Ramey 01/07/2019[place]: "...I spoke at great length to the patient and stated he would be offered an adductor canal block with a likely general anesthetic although would not definitively r/o SAB (will leave to the discretion of the anesthesia provider DOS). Also spoke to him about the possibility of an arterial line for closer BP monitoring. Patient understood and had all questions answered. He is very much interested in having knee surgery as he states he is active, plays tennis and has never had any symptoms stemming from his dilated aorta. "Cardiology note from Dr. Sesar Chow at [facility] on 02-14-2019. "Most recent ECHOs suggested a root of 5.0 to 5.1cm, roughly consistent with the CTA cusp to cusp measurements. I have discussed the case with Dr. Keita, who thinks that 5.5cm is generally the right threshold for intervention, or rapid growth or at least moderate AI. He has mild to moderate AI. Since our last visit, he has been well. Still playing tennis, staying in good shape. Will repeat an ECHO in the Spring, with attention to the degree of AI. Given his anxiety about his condition, he would like to meet Dr. Keita." PA from Dr. Chow's office followed up with a phone call stating that the patient does NOT have to see Dr. Keita (CT surgery at [facility]) prior to upcoming surgery with Dr. Murillo. Patient appears ok for surgery and no further testing or consults necessary." COVID screening: Per pony worker on 06/09/2021: Travel screen negative, no known COVID-19 positive contacts or current COVID-19 related symptoms in past 2 weeks. Patient vaccinated. Surgeon arranging preop COVID testing, scheduled 06/10/2021. Awaiting results. Chart Review Chart Review: Acceptable Risk for Surgery and Patient NOT seen in Pre Admission Testing History Surgery Operation Date: 06/14/21 14:15 Proposed Procedures p Revision Left Unicompartment Knee, - Hank Murillo DO s To Left Total Knee Arthroplasty - Hank Murillo DO Surgery re-scheduled from 03/2021. Height/Weight Height: 5 ft 8 in Weight: 85.275 kg Allergies Allergy/AdvReac Type Severity Reaction Status Date / Time nickel Allergy Severe "INFLAMMATI Verified 06/09/21 14:17 ON" celecoxib [From Celebrex] Allergy Mild Rash Verified 06/09/21 14:17 erythromycin base Allergy Mild Rash Verified 06/09/21 14:17 morphine AdvReac Severe N/V, Verified 06/09/21 14:17 VERTIGO AND HEADACHE Medications Home Medications Medication Instructions Recorded Confirmed Last Taken cholecalciferol (vitamin D3) 50 2,000 unit PO QAM 01/10/18 06/09/21 02/03/21 mcg (2,000 unit) tablet (Vitamin D3) losartan 100 mg tablet (Cozaar) 100 mg PO QAM 01/10/18 06/09/21 02/04/21 atorvastatin 40 mg tablet (Lipitor) 40 mg PO QPM tab 11/06/18 06/09/21 02/03/21 coenzyme Q10 100 mg capsule (Co 200 mg PO HS cap 11/06/18 06/09/21 02/03/21 Q-10) hydrochlorothiazide 12.5 mg tablet 12.5 mg PO QAM #30 tab 11/06/18 06/09/21 02/04/21 vitamin B complex 1 cap PO QAM 11/06/18 06/09/21 02/03/21 budesonide-formoterol HFA 80 2 puffs INH BID PRN 04/30/19 06/09/21 02/03/21 mcg-4.5 mcg/actuation aerosol inhaler (Symbicort) magnesium citrate 100 mg tablet 400 mg PO QAM tab 11/08/19 06/09/21 02/03/21 tadalafil 10 mg tablet 5 mg PO DAILY 11/08/19 06/09/21 02/03/21 ascorbic acid (vitamin C) 1,000 mg 1 g PO QAM tab 04/22/20 06/09/21 02/03/21 tablet aspirin 81 mg tablet,delayed 81 mg PO HS tab 01/12/21 06/09/21 02/03/21 release vitamin K2 40 mcg tablet 40 mcg PO QPM tab 01/12/21 06/09/21 02/03/21 alprazolam 0.25 mg tablet 0.25 mg PO BID PRN #30 tab 03/08/21 06/09/21 Unknown clindamycin HCl 300 mg capsule 600 mg PO UD 03/29/21 06/09/21 Unknown famotidine 20 mg tablet (Acid 20 mg PO QPM PRN 03/29/21 06/09/21 Unknown Mechanical Process Engineer (famotidine)) trazodone 100 mg tablet 100 mg PO DAILY #30 tab 03/31/21 06/09/21 Unknown finasteride 5 mg tablet 5 mg PO DAILY #30 tab 05/06/21 06/09/21 Unknown tramadol 50 mg tablet 50 mg PO Q6H PRN #30 tab 05/17/21 06/09/21 Unknown omeprazole 20 mg capsule,delayed 20 mg PO QAM PRN #30 cap 05/31/21 06/09/21 Unknown release Past Medical History Medical History Adult situational stress disorder Aneurysm of ascending aorta 4.8-5.2 cm. Planning elective aortic root surgery at [facility] 11/2021, cleared to proceed with orthopedic surgery prior to repair per 03/25/2021 cardiology office note Anxiety BPH (benign prostatic hyperplasia) Bradycardia chronic - 40-50s - asymptomatic CAD (coronary artery disease) follows with [facility] cardiology; no cath; "CAC [id number] CTA 2020: LM-20%. LAD-30%. LCx OK. RCA-<30%" per 03/25/2021 note Heartburn occasional, resolves with omeprazole, stable per pt Hyperlipidemia Hypertension controlled, stable per pt Insomnia Osteoarthritis Sleep apnea CPAP-compliant Vision problem Patient denied stroke, seizures, heart attack, heart failure, DM, blood clots or blood transfusions. Exercise / Class Metabolic Activity Pt reported no CP or SOB with exercise. Past Family History Family History Mother Hypertension Stroke Father Aortic aneurysm Cardiac disorder Other No family history of adverse response to anesthesia No family history of bleeding disorder Past Surgical History Surgical History History of arthroplasty of right knee 02/22/2019: SAB at L4-L5 + PNB. No issues per anesthesia progress note. History of colonoscopy History of knee surgery 2008. left knee hemiarthroplasty. SAB. No anesthesia issues. Past Anesthesia History No Hx of Anesthesia Complications and No Family Hx of Anesthesia Complications History of PONV No Hx of Motion Sickness and History of PONV (with left knee replacement due to morphine per pt) Social History Smoking Status: Never smoker Hx Alcohol Use: Yes Alcohol type: wine and hard liquor alcohol intake frequency: 0-2 drinks per day substance use type: does not use Review of Systems Patient denies chest pain, shortness of breath, dyspnea on exertion, dizziness, lightheadedness, pre-syncope, fever, chills, cough, wheezing, or palpitations. Physical Exam Vital Signs Vitals from 04/01/2021 PAT consult BP 149/77 (He states home BP readings are 120s/70s, often elevated at appointments with stress) P 60 TEMP 98.4 SP02 98% on RA RESP 17 Physical from 04/01/2021 PAT consult Full cervical extension range of motion without pain Full TMJ range of motion TMD 3.5 finger breaths Mallampati Score 2 Dentition: intact Lungs: normal respiratory effort. Clear throughout to auscultation, no adventitious breath sounds Cardiac: regular rate and rhythm, no murmurs noted Carotid arteries: negative bruit bilat Extremities: no distal extremity edema Testing Electrocardiogram Date: 03/24/21 Sinus bradycardia with 1st degree AV block, rate 54 bpm left axis deviation. Chest X-Ray Date: 04/01/21 Mild asymmetric left hilar prominence redemonstrated. No pneumothorax, large pleural effusion or overt pulmonary edema. Unchanged blunting of the costophrenic angles. No lobar airspace consolidation. Degenerative changes of the shoulders and spine. No acute process. Echocardiogram Date: 08/10/20 Normal left ventricular size and systolic function. EF 60-65%. No regional wall motion abnormalities. Moderate LVH. Mild aortic regurgitation. Moderately to severely dilated aortic root, 5.2 cm. Aortic root size is similar to what was previously described in outpatient [facility] cardiology note from 03/12/2020. Other Testing CTA heart 03/24/2021: Severe aortic root dilatation with unchanged dimensions to 2019. Mild-moderate coronary atherosclerotic disease Mild right ventricular dilatation LM: minimal atherosclerotic disease LAD: diffuse, calcified atherosclerosis 30-49% lumen narrowing of second diagonal branch Cx: minimal atherosclerotic disease RCA: mild, calcified atherosclerosis in all segments with 20-30% lumen narrowing Normal left ventricular cavity size, proximal septal thickening Right ventricular cavity mildly dilated Left atrial cavity mildly dilated Borderline right atrial enlargement Ascending aorta mildly dilated Aortic root severely dilated measures up to 5.2 cm Mild atherosclerotic disease in ascending aorta Moderate atherosclerotic disease in descending aorta CT chest with IV contrast overread 03/24/2021: Helical axial cardiac CT images, obtained during a cardiac CT examination were submitted for review of extracardiac findings Findings: No significant extracardiac findings Partially calcified mediastinal and hilar adenopathy Aorto-iliac duplex 09/07/2020: Proximal abdominal aorta mildly ectatic measuring 2.3 cm Right LORELEI is aneurysmal, measuring 1.5 cm Left LORELEI is ectatic, measuring 1.4 cm No evidence of stenosis of the Ao-iliac system
--- NOTE | 2021-06-10 14:33 | History & Physical Report ---
Date of Service June 10, 2021 Assessment & Plan (1) Effusion, left knee: We will proceed with a revision left total knee arthroplasty. Postoperatively he will be started on aspirin for DVT prophylaxis and kept overnight in the hospital for postoperative medical management. He plans to use [facility] upon discharge. History of Present Illness Chief Complaint: Recurrent effusions and osteoarthritis left knee . Primary Care Provider: Binh Vincent MD Elio is a pleasant 81-year-old male who underwent a left partial knee replacement 10 years ago in [place]. He was having recurrent effusions of his knees. He underwent allergy testing and was found to have a nickel allergy. After failing 10 years of repeat aspirations and injections of his knee, he elected proceed with a revision to a left total knee arthroplasty. . Allergies Allergy/AdvReac Type Severity Reaction Status Date / Time nickel Allergy Severe "INFLAMMATI Verified 06/09/21 14:17 ON" celecoxib [From Celebrex] Allergy Mild Rash Verified 06/09/21 14:17 erythromycin base Allergy Mild Rash Verified 06/09/21 14:17 morphine AdvReac Severe N/V, Verified 06/09/21 14:17 VERTIGO AND HEADACHE Home Medications Medication Instructions Recorded Confirmed Type cholecalciferol (vitamin D3) 50 2,000 unit PO QAM 01/10/18 06/09/21 History mcg (2,000 unit) tablet (Vitamin D3) losartan 100 mg tablet (Cozaar) 100 mg PO QAM 01/10/18 06/09/21 History atorvastatin 40 mg tablet (Lipitor) 40 mg PO QPM tab 11/06/18 06/09/21 History coenzyme Q10 100 mg capsule (Co 200 mg PO HS cap 11/06/18 06/09/21 History Q-10) hydrochlorothiazide 12.5 mg tablet 12.5 mg PO QAM #30 tab 11/06/18 06/09/21 History vitamin B complex 1 cap PO QAM 11/06/18 06/09/21 History budesonide-formoterol HFA 80 2 puffs INH BID PRN 04/30/19 06/09/21 History mcg-4.5 mcg/actuation aerosol inhaler (Symbicort) magnesium citrate 100 mg tablet 400 mg PO QAM tab 11/08/19 06/09/21 History tadalafil 10 mg tablet 5 mg PO DAILY 11/08/19 06/09/21 History ascorbic acid (vitamin C) 1,000 mg 1 g PO QAM tab 04/22/20 06/09/21 History tablet aspirin 81 mg tablet,delayed 81 mg PO HS tab 01/12/21 06/09/21 History release vitamin K2 40 mcg tablet 40 mcg PO QPM tab 01/12/21 06/09/21 History alprazolam 0.25 mg tablet 0.25 mg PO BID PRN #30 tab 03/08/21 06/09/21 Rx clindamycin HCl 300 mg capsule 600 mg PO UD 03/29/21 06/09/21 History famotidine 20 mg tablet (Acid 20 mg PO QPM PRN 03/29/21 06/09/21 History Clinical Laboratory Manager (famotidine)) trazodone 100 mg tablet 100 mg PO DAILY #30 tab 03/31/21 06/09/21 Rx finasteride 5 mg tablet 5 mg PO DAILY #30 tab 05/06/21 06/09/21 Rx tramadol 50 mg tablet 50 mg PO Q6H PRN #30 tab 05/17/21 06/09/21 Rx omeprazole 20 mg capsule,delayed 20 mg PO QAM PRN #30 cap 05/31/21 06/09/21 Rx release Past Med/Surg History Medical History Adult situational stress disorder Aneurysm of ascending aorta 4.8-5.2 cm. Planning elective aortic root surgery at [facility] 11/2021, cleared to proceed with orthopedic surgery prior to repair per 03/25/2021 cardiology office note Anxiety BPH (benign prostatic hyperplasia) Bradycardia chronic - 40-50s - asymptomatic CAD (coronary artery disease) follows with [facility] cardiology; no cath; "CAC 547 [id number] CTA 2020: LM-20%. LAD-30%. LCx OK. RCA-<30%" per 03/25/2021 note Heartburn occasional, resolves with omeprazole, stable per pt Hyperlipidemia Hypertension controlled, stable per pt Insomnia Osteoarthritis Sleep apnea CPAP-compliant Vision problem Surgical History History of arthroplasty of right knee 02/22/2019: SAB at L4-L5 + PNB. No issues per anesthesia progress note. History of colonoscopy History of knee surgery 2009. left knee hemiarthroplasty. SAB. No anesthesia issues. Family History Mother Hypertension Stroke Father Aortic aneurysm Cardiac disorder Other No family history of adverse response to anesthesia No family history of bleeding disorder Social History Smoking Status: Never smoker Second Hand Exposure: No; Hx Alcohol Use: Yes Alcohol type: wine and hard liquor Preferred Language: [place] Communication Ability: Effective Visual Impairment: Limited Hearing Ability: Use of Hearing Aid Presto Log Operator Required: No Beliefs That Will Affect Care: None marital status: Current Living Situation: Spouse current occupational status: retired Feels Safe at Home: Yes Childhood Exposure to Second-Hand Smoke: Yes caffeine: Yes Dental Care, Regularly: Yes Physical Activity Frequency: 3-4 Times per Week Seatbelt Use: always Sunscreen Use: Yes Assistive Devices: CPAP, Glasses and Hearing Aid - Bilateral Review of Systems All systems reviewed & are unremarkable except as noted in HPI & below. Physical Exam On physical examination of the left knee, there is a large 2+ effusion. His range of motion from 5 to 100 degrees which is limited by the effusion. There is no signs of infection. . Constitutional WD/WN, vitals as above Eyes PERRL, conjunctivae normal, anicteric sclerae ENMT external ear and nose normal, oropharynx normal Neck trachea midline, no thyromegaly Respiratory normal respiratory effort Cardiovascular RRR, no murmur, no edema Gastrointestinal (Abdomen) normal bowel sounds, soft, nontender, no hepatosplenomegaly Psychiatric A+Ox3, euthymic affect Results & Data Results & Data Laboratory Results . Diagnostic Findings X-rays the left knee show the prosthesis to be in good alignment. No definitive signs of loosening. He is starting to develop some arthritis in the lateral compartment. . PG Care Time/CCT Total # of Minutes Spent Total Time Spent with Patient: Total time spent is greater than 50% in coordination of care (as documented) at patient's floor/unit and/or counseling patient: Coding Level of Care Code None Diagnoses Effusion, left knee M25.462
[~2021-06-14 10:34] MED LIST changes: -CEFAZOLIN 2000MG 2,000 MG/15 ML SYR IV SCH; +Ketorolac (*for OR use only*) 30 MG, dexAMETHasone 4 MG, KETAMINE HCL (**OR use only) 1... INFIL SCH; +LR 15ML/HR IV SCH; -ROPIVACAINE 0.5% HCL/PF 150 MG, BUPIVACAINE 0.5% MPF 30 ML, EPINEPHrine 30MG/30ML (OR U... INSTIL SCH; +ceFAZolin 2000MG 2,000 MG/15 ML SYR IV SCH; +dexAMETHasone 4 MG TAB PO SCH
--- NOTE | 2021-06-14 11:15 | History & Physical Bridge Note ---
Date of Service June 14, 2021 History & Physical Bridge Note I have examined the patient, reviewed the History & Physical and in the interval since the performance of the History & Physical I have noted the following changes of clinical significance: no changes noted
[2021-06-14 11:16] LABS: Basophils # (auto) 0.01 K/uL (0-0.2); Basophils % (auto) 0.1 %; Eosinophils % (auto) 1.2 %; Hematocrit (blood only) 45.7 % (42-52); Hemoglobin 15.4 g/dL (14.0-18.0); Immature Granulocytes # (auto) 0.06 K/uL (0.00-0.02); Immature Granulocytes % (auto) 0.7 %; Lymphocytes # (auto) 1.99 K/uL (1.2-3.4); Lymphocytes % (auto) 24.7 %; Mean Corpuscular Hemoglobin 30.3 pg (25-34); Mean Corpuscular Volume 89.8 fL (80-100); Mean Platelet Volume 8.8 fL (7.4-10.4); Monocytes # (auto) 0.54 K/uL (0.11-0.59); Monocytes % (auto) 6.7 %; Neutrophils # (auto) 5.37 K/uL (1.4-6.5); Neutrophils % (auto) 66.6 %; Platelet Count 229 K/uL (130-400); RDW Coefficient of Variation 13.3 % (11.5-14.5); RDW Standard Deviation 43.5 fL (36.4-46.3); Red Blood Count 5.09 M/uL (4.7-6.1); White Blood Count 8.07 K/uL (4.8-10.8)
[2021-06-14 11:17] LABS: Mean Corpuscular Hgb Conc 33.7 g/dL (32-36)
[2021-06-14 11:25] LABS: INR 1.1 (0.9-1.1); Partial Thromboplastin Ratio 1.2; Partial Thromboplastin Time 30.7 Seconds (21.0-31.0); Prothrombin Time 10.9 Seconds (9.0-12.0)
[2021-06-14 11:45] LABS: BUN Creatinine Ratio 24.2 (10-20); Calcium 9.3 mg/dl (8.5-10.1); Creatinine Clr Calc Pharmacy 64.3 ml/min; Est GFR (African American) 83.6 ml/min; Est GFR (Non-African American) 72.1 ml/min; Potassium 3.7 mmol/L (3.5-5.1)
[2021-06-14] MEDS ORDERED: MIDAZOLAM HCL 1 MG/ML 2ML VIAL ONE (11:55)
[2021-06-14] MEDS ORDERED: PROPOFOL IV EMULSION 10 MG/ML 20 ML VIAL IV ONE ×3 (11:56→13:59)
[2021-06-14] MEDS ORDERED: KETOROLAC 30 MG/ML VIAL ONE (11:56)
[2021-06-14] MEDS ORDERED: ONDANSETRON INJ 2 MG/ML 2 ML VIAL ONE (11:56)
[2021-06-14] MEDS ORDERED: ORTHO JOINT ANESTHETIC ONE (13:26)
[2021-06-14] MEDS ORDERED: ePHEDrine sulfate 50 MG/ML AMP IV PRN (14:08)
[2021-06-14] MEDS ORDERED: fentaNYL citrate 100 MCG/2 ML VIAL IV PRN (14:08)
[2021-06-14] MEDS ORDERED: ePHEDrine sulfate 50 MG/ML SYR ONE (14:08)
[2021-06-14] MEDS ORDERED: ONDANSETRON INJ 2 MG/ML 2 ML VIAL IV PRN ×2 (14:08→16:48)
[2021-06-14] MEDS ORDERED: ATROPINE SULFATE 0.1 MG/ML 10ML SYR IV PRN (14:08)
--- NOTE | 2021-06-14 15:38 | Operative Report ---
PG Post Operative Report Pre & Post Diagnosis Operation Date: 06/14/21 12:30 Pre-Op Diagnosis: Aseptic Loosening Left Unicompartment Knee Arthroplasty Post-Op Diagnosis: Aseptic Loosening Left Unicompartment Knee Arthroplasty I identified the patient and participated in the time-out.: Yes Procedure Operation Date: 06/14/21 12:30 Actual Procedures p Revision Left Unicompartment Knee to Left Total Knee Arthroplasty, Cemented - Hank Murillo DO Surgeon Hank Murillo DO [employer] None Estimated Blood Loss 30 Findings Consistent with Post-Op Diagnosis Specimens Left femoral and tibial bone Complications none Disposition Disposition: Recovery Room Indications Elio is a pleasant 81-year-old male who underwent a left partial knee replacement about 10 years ago. He has been having effusions since. A work-up by his surgeon showed a nickel allergy. After years of multiple aspirations, he has elected to proceed with a revision to a left total knee arthroplasty. Description of Procedure Implants used: I used a Libby Persona total knee arthroplasty system with a size 8 PS standard tivanium femur, F tibia with a 30 mm stem, 34 oval patella, and a size 10 CPS polyethylene bearing. All components were cemented in place with Biomet cement. Elio arrived [facility] for the above procedure. He was seen in the preoperative holding area and the operative extremity was identified and signed. He was given a preoperative antibiotic, TXA, a spinal anesthetic and an adductor nerve block. He was taken back to the operating room and laid on the table in supine position. He was given basic sedation. The operative knee was then prepped and draped in sterile fashion. A timeout was done, and the patient and the operative extremity was properly identified. A midline incision was made directly over the patella. Dissection was taken down to the extensor mechanism. A subvastus arthrotomy was used. The medial retinaculum was released and the fat pad was mostly excised. The knee was flexed and the ACL, PCL, and lateral meniscus were removed. The femoral component of the unicompartmental knee was grossly loose. This was easily removed. The polyethylene insert was then removed and the tibial tray was removed with an osteotome. A drill was sent down the center of the femoral canal followed by an intramedullary heladio. Off that heladio a distal femoral cutting block was placed. 9 mm was resected off the distal femur at 5 of valgus. A posterior referencing AP sizing guide was then placed on the distal femur. The femur measured to be a size 8. 2 drill holes were placed in 3 of external rotation. A 4-in-1 cutting block was then impacted into place. Anterior, posterior, and chamfer cuts were then made. The proximal tibia was then exposed. An external tibial alignment guide was placed. A tibial cut guide was then anchored in place and the proximal tibia was then resected. The posterior aspect of the knee was then opened up and any additional meniscus fragments and osteophytes were removed. The tibia measured to be a size F. The tibial plate was then placed in the appropriate rotation and the tibia was drilled and punched. Trial components were then placed. I used a size 10 CPS polyethylene insert. The knee was brought through a full range of motion and felt to be stable. The peg holes for the femoral component were then drilled. The patella was then everted and 9 mm was resected off the posterior aspect of the patella. The patella measured to be a size 34 oval. 3 peg holes were then drilled. A trial patella was placed. The knee was once again brought through a full range of motion and felt to be stable. Trial components were then removed. The surrounding soft tissues were injected with 100 cc of an orthopedic pain control cocktail. All components were then cemented into place with Biomet cement. The final polyethylene insert was then snapped into place. Once cement was dry the tourniquet was deflated. Hemostasis was obtained. A dilute betadyne lavage was then done for 3 minutes. The joint was then irrigated with normal saline solution. The subvastus arthrotomy was then closed with #1 Vicryl suture. The skin was closed with 2-0 Vicryl, 3-0V lock suture, and tomi. A soft compressive dressing was placed. He was then transferred to a hospital bed and taken to the postanesthesia care unit in stable condition. He tolerated the procedure well. Hank Márquez PA-C, was present for the entire procedure. He was critical for patient positioning, prepping, draping, retraction exposure, wound closure and application of sterile dressing. I attest to the content of the Intraoperative Record and any orders documented therein. Any exceptions are noted below.
--- NOTE | 2021-06-14 16:02 | XRay Report ---
TWO VIEWS LEFT KNEE CLINICAL HISTORY: Postoperative examination. FINDINGS: AP and crosstable lateral portable views of the left knee are obtained. A left knee arthrop lasty is in near anatomic alignment. There has been undersurface remodeling of the patella. No acute fracture is seen. There are expected postoperative changes around the knee including skin clips, soft tissue edema, and subcutaneous gas. IMPRESSION: Expected postoperative changes status post left knee arthroplasty. No acute fracture is s een. ACT 112: Negative or not required by law. Electronically signed by: Calin Ruano M.D. 06/14/2021 4:01 PM
--- NOTE | 2021-06-14 16:37 | Anesthesiology Progress Note ---
Date of Service June 14, 2021 Anesthesia Post Procedure Vital Signs Vital Signs: Temp Pulse Pulse Resp BP Pulse Ox 06/14/21 16:35 36.4 C L 58 L 14 106/57 L 97 06/14/21 16:25 61 16 116/59 L 97 06/14/21 16:15 61 16 104/58 L 97 06/14/21 16:05 36.7 C 64 16 104/63 98 06/14/21 15:55 69 16 115/63 97 06/14/21 15:45 62 16 113/56 L 98 06/14/21 15:35 36.8 C 64 12 112/61 100 06/14/21 11:00 36.8 C 57 L 18 158/73 H 99 Transfer of Care Handoff Completed per policy Notes Mental Status: alert / awake / arousable Patient Amnestic to Procedure: Yes Nausea / Vomiting: adequately controlled Pain: adequately controlled Airway Patency, RR, SpO2: stable & adequate BP & HR: stable & adequate Hydration State: stable & adequate Neuraxial Anesthesia: was administered and sensory block is resolving Anesthetic Complications: no major complications apparent and Pt Satisfied with anesthetic care
[2021-06-14] MEDS ORDERED: MAGNESIUM HYDROXIDE SUSP 30 ML UDC PO PRN (16:48)
[2021-06-14] MEDS ORDERED: HYDROmorphone INJ 0.5 MG/0.5 ML SYR IV PRN (16:48)
[2021-06-14] MEDS ORDERED: NALOXONE HCL 0.4 MG/1 ML VIAL/CARP IV PRN (16:48)
[2021-06-14] MEDS ORDERED: bisacodyL 10 MG SUPP PR PRN (16:48)
[2021-06-14] MEDS ORDERED: oxyCODONE HCL IR 5 MG TAB (IMMEDIATE RELEASE) PO PRN (16:48)
[2021-06-14] MEDS ORDERED: METOCLOPRAMIDE HCL INJ 5 MG/ML 2 ML VIAL IV PRN (16:48)
[2021-06-14] MEDS ORDERED: FAMOTIDINE 20 MG TAB PO PRN (16:48)
[2021-06-14] MEDS ORDERED: ALPRAZolam 0.25 MG TABLET PO PRN (16:48)
[2021-06-14] MEDS ORDERED: FLUTICASONE/VILANTEROL 100/25MCG 14 PUFFS/INHALER INH PRN (16:53)
[2021-06-14] MEDS ORDERED: PANTOprazole 40 MG TAB PO PRN (16:54)
[2021-06-14] MEDS: SODIUM CHLORIDE 0.9% 1000ML 1,000 ML IV SCH (18:22)
[2021-06-14] MEDS: KETOROLAC TROMETHAMINE 15 MG/ML VIAL IV SCH ×2 (18:23→22:46)
[2021-06-14] MEDS: DOCUSATE SODIUM 100 MG CAP PO SCH (20:31)
[2021-06-14] MEDS: ASPIRIN 81 MG ECTAB PO SCH (20:32)
[2021-06-14] MEDS ORDERED: ATORVASTATIN 40 MG TAB PO SCH (21:00)
[2021-06-14] MEDS ORDERED: SENNA 8.6 MG TAB PO SCH (21:00)
[2021-06-14] MEDS: ceFAZolin 2000MG 2,000 MG/15 ML SYR IV SCH (21:12)
[2021-06-14] MEDS ORDERED: traZODone HCL 100 MG TAB PO SCH (23:00)
[2021-06-14] MEDS ORDERED: Nursing to Pharmacy Communication SCH (23:15)
[2021-06-15] MEDS: SODIUM CHLORIDE 0.9% 1000ML 1,000 ML IV SCH (04:08)
[2021-06-15] MEDS: KETOROLAC TROMETHAMINE 15 MG/ML VIAL IV SCH ×2 (05:45→11:14)
[2021-06-15] MEDS: ceFAZolin 2000MG 2,000 MG/15 ML SYR IV SCH (05:45)
[2021-06-15] MEDS ORDERED: dexAMETHasone 4 MG TAB PO SCH (08:00)
[2021-06-15] MEDS: ASPIRIN 81 MG ECTAB PO SCH (08:47)
[2021-06-15] MEDS: DOCUSATE SODIUM 100 MG CAP PO SCH (08:47)
[2021-06-15] MEDS ORDERED: LOSARTAN POTASSIUM 50 MG TAB PO SCH (09:00)
[2021-06-15] MEDS ORDERED: traZODone HCL 100 MG TAB PO SCH (09:00)
[2021-06-15] MEDS ORDERED: FINASTERIDE 5 MG TAB PO SCH (09:00)
[2021-06-15] MEDS ORDERED: hydroCHLOROthiazide 25 MG TAB PO SCH (09:00)
--- NOTE | 2021-06-15 10:57 | Orthopedic Progress Note ---
Date of Service June 15, 2021 Assessment & Plan (1) Status post left knee replacement: Overall is doing fairly well. Is not any much pain in the left knee. He is being seen by physical therapy who is doing ambulation and range of motion exercises. He is on aspirin for DVT prophylaxis. He can be discharged home later today. He will follow-up with orthopedics in 2 weeks. Marvin Ballard was seen and examined at bedside this morning. Overall he is doing fairly well. He 7 little bit of soreness in the knee but is not that bad. He is participating well with therapy. He is no complaints. Review of Systems All systems reviewed & are unremarkable except as noted in HPI & below. Physical Exam On physical examination of the left knee, the dressing is clean and dry. He can actively dorsiflex and plantarflex his left ankle. Sensations intact throughout. Results & Data Results & Data Laboratory Results . Diagnostic Findings Postoperative x-rays of the left knee show the prosthesis to be in anatomic alignment without any evidence of fracture, desiccation, or loosening. PG Care Time/CCT Total # of Minutes Spent Total Time Spent with Patient: Total time spent is greater than 50% in coordination of care (as documented) at patient's floor/unit and/or counseling patient: Coding Level of Care Code 63532 Post Operative Follow-Up Diagnoses Status post left knee replacement Z96.652
--- NOTE | 2021-06-15 10:58 | Discharge Summary ---
Date of Service June 15, 2021 Admission HPI (Per Admitting) Elio is a pleasant 81-year-old male who underwent a left partial knee replacement 10 years ago in [place]. He was having recurrent effusions of his knees. He underwent allergy testing and was found to have a nickel allergy. After failing 10 years of repeat aspirations and injections of his knee, he elected proceed with a revision to a left total knee arthroplasty. . Admission Exam (Per Admitting) On physical examination of the left knee, there is a large 2+ effusion. His range of motion from 5 to 100 degrees which is limited by the effusion. There is no signs of infection. . Principal Diagnosis Same as "Discharge Diagnosis" noted below under Discharge Instructions. Discharge Exam On physical examination of the left knee, the dressing is clean and dry. He can actively dorsiflex and plantarflex his left ankle. Sensations intact throughout. Discharge Data Procedures Performed Operation Date: 06/14/21 12:30 Actual Procedures p Revision Left Unicompartment Knee to Left Total Knee Arthroplasty, Cemented - Hank Murillo DO Ordered Studies 06/14/21 05:00 US - OR guided needle placemen Routine Hospital Course (1) Status post left knee replacement: On June 14, 2021 Shubham arrived at [facility] and underwent a left knee replacement without complication. He had a spinal anesthetic. Postoperatively he was started on aspirin for DVT prophylaxis and transferred to the general. Floors. His hospital course was uneventful. On postop day #1 his vital signs were stable and his pain was well controlled. He was able to participate well with physical therapy doing ambulation and range of motion exercises. He was then discharged home. He will follow-up with orthopedics in 2 weeks. PG Care Time/CCT Total # of Minutes Spent Total Time Spent with Patient: Total time spent is greater than 50% in coordination of care (as documented) at patient's floor/unit and/or counseling patient: Discharge Plan Discharge Items Patient Disposition: Home - Home Health Services Reason For Visit: Painful Left Unicompartment Knee Arthroplasty Discharge Diagnosis: Left knee replacement Activity: As commented below Non-emergency contact: Surgeon Call non-emergency contact if: your wound has increased redness and your wound has increased drainage Follow-up/Referrals: Binh Vincent MD [Primary Care Provider] - Hank Murillo DO [Physician] - 06/29/21 2:20 pm Diet: Regular Addtl Attending Provider Instructions: Activity and Therapy Recommendations: * If you are using [facility] then therapy will be provided at your home until they feel you have accomplished all of your goals. * If you are using [facility] then Physical Therapy will be provided until they feel you are ready to start Outpatient Physical Therapy. * If you are not using home therapy then Outpatient Physical Therapy should start about 3-5 days from your day of surgery. Therapy will last about 6-10 weeks * It is important not to put a pillow under your knee when you are relaxing or sleeping. It is just as important to make sure you are getting your knee perfectly straight as it is to regain your knee bend. * You were shown a series of exercises in the hospital. Do these exercises three times each day including the exercises you were shown in physical therapy. * Get up and walk several times each day. For the first four weeks, try not to stand or walk for more than one hour at a time. If you do stand or walk for more than one hour, you will not hurt anything, but your leg will likely swell. * As you feel comfortable, you may change from the walker or crutches to a cane and then to independent walking. Medications: * Narcotic You will likely be sent home from the hospital with a prescription for the narcotic pain medication that worked best throughout your stay. * Aspirin Most patients will be required to take Aspirin 81mg twice a day for 6 weeks after surgery. This is obtained [id number] and a prescription is not necessary. * Other medications may be prescribed for specific circumstances. If you have any questions, please call the office at . * Resume previous home medications unless otherwise instructed TEDs/Elastic Stockings: The white elastic stockings help limit swelling and prevent blood clots from forming in your legs.~ The more you wear them, the more they work. Wear them for six weeks. Dressing Care: The dressing can be changed after physical therapy on postop day #1. Daily dry dressing changes for a few days, especially if the incision is still draining some. If the incision is not draining then you may leave the tomi open to air. If there is a little bit of drainage or if the tomi are getting stuck on your clothing then cover the incision with a dry dressing. The tomi will be removed at your 2 week follow-up appointment. Showering: You may shower 5 days from the day of surgery as long as the incision is no longer draining. You may shower with the tomi exposed. Let soapy water run over the tomi and pat them dry. Do not scrub or soak the incision. Things To Watch For: * Drainage from the incision site that occurs more than one week after your surgery. * Increased redness at the incision site. * Fever above 102 degrees Fahrenheit. * Unusual chest pain or shortness of breath. * Call [facility] at with any of the above problems Follow-Up Visit: Follow-up with Dr. Murillo's PA (Hank Márquez) 2-3 weeks after your day of surgery. He will remove your tomi and answer any questions. If you have any additional questions or concerns, Dr Murillo is usually in the office at the same time and will be available An appointment was probably scheduled when you signed-up for surgery in the office. If you have any questions call Office Instructions: More detailed instructions as well as Frequently Asked Questions were provided in a folder by our office when you signed-up for surgery. Please review these instructions when you get home. If you have any further questions or concerns, please feel free to call the office at [phone] Pending Studies at Discharge: No Stand-Alone Forms: My [facility], Opioid Pain Management Medications and DC Order Prescriptions: New oxycodone-acetaminophen 5-325 mg tablet 1 tab PO Q6H PRN (Reason: pain) Qty: 30 RF: 0 Continued alprazolam 0.25 mg tablet 0.25 mg PO BID PRN (Reason: anxiety) Qty: 30 RF: 0 finasteride 5 mg tablet 5 mg PO DAILY Qty: 30 RF: 5 omeprazole 20 mg capsule,delayed release(DR/EC) 20 mg PO QAM PRN (Reason: Heartburn) Qty: 30 RF: 6 tadalafil 10 mg tablet 5 mg PO DAILY RF: 0 ascorbic acid (vitamin C) 1,000 mg tablet 1 g PO QAM RF: 0 trazodone 100 mg tablet 100 mg PO DAILY Qty: 30 RF: 4 vitamin B complex capsule 1 cap PO QAM RF: 0 hydrochlorothiazide 12.5 mg tablet 12.5 mg PO QAM Qty: 30 RF: 0 magnesium citrate 100 mg tablet 400 mg PO QAM RF: 0 vitamin K2 40 mcg tablet 40 mcg PO QPM RF: 0 budesonide-formoterol [Symbicort] 80-4.5 mcg/actuation HFA aerosol inhaler 2 puffs INH BID PRN (Reason: Shortness Of Breath Or Wheezing) RF: 0 losartan [Cozaar] 100 mg tablet 100 mg PO QAM RF: 0 cholecalciferol (vitamin D3) [Vitamin D3] 2,000 unit Tablet 2,000 unit PO QAM RF: 0 atorvastatin [Lipitor] 40 mg tablet 40 mg PO QPM RF: 0 coenzyme Q10 [Co Q-10] 100 mg capsule 200 mg PO HS RF: 0 clindamycin HCl 300 mg capsule 600 mg PO UD RF: 0 famotidine [Acid Supervisor S[employer] (famotidine)] 20 mg tablet 20 mg PO QPM PRN (Reason: Heartburn) RF: 0 Changed aspirin 81 mg tablet,delayed release (DR/EC) 81 mg PO BID 42 Days Qty: 0 RF: 0 Discharge Orders: Discharge Order (Routine); Ordered 06/15/21 Ordered By: Hank Banegas/Other Patient Handouts: Understanding Deep Vein Thrombosis, DVT Post Op Prevention Admission Data Admit Date/Time: 06/14/21 15:45 Attending Provider: Hank Murillo Admit Provider: Hank Murillo Primary Care Provider: Binh Vincent Other Interventions: Discharge Summary Assessment (RN) Last Done: 06/15/21 09:49
== END 2021-06-15 12:20 | disposition home health service (06) ==
LOC: PACUINP 10:34 → ASU 10:34 → 3N 17:45